=== PATIENT | male | born 1975 | race African-American/Black ===

== ENCOUNTER 2018-12-29 12:42 | Emergency (ER) | payer BC, SELFPAY ==
[2018-12-29] MEDS ORDERED: Ibuprofen 800 MG TAB ONE (13:39)
[2018-12-29] MEDS ORDERED: Ondansetron ODT 4 MG TAB ONE (13:39)
[2018-12-29 14:56] LABS: #Lymphocytes 0.9 thou/uL (1.20-3.40); #Monocytes 0.7 thou/uL (0.11-0.59); #Neutrophils 6.9 thou/uL (1.40-6.50); %Basophils 0.1 % (0.0-1.0); %Eosinophils 0.6 % (0.0-10.0); %Lymphocytes 10.5 % (21.0-51.0); %Monocytes 7.9 % (0.0-10.0); %Neutrophils 80.9 % (42.0-75.0); Hemoglobin 13.3 g/dL (14.0-18.0); Mean Corpuscular HGB CONC 32.4 g/dL (32.0-36.0); Mean Corpuscular Hemoglobin 28.2 pg (27.0-31.0); Mean Platelet Volume 7.6 fL (7.4-10.4); Platelet Count 238 thou/uL (130-400); RBC Distribution Width 11.6 % (11.5-14.5); Red Blood Cell (RBC) Count 4.71 mill/uL (4.70-6.10); White Blood Cell (WBC) Count 8.5 thou/uL (4.8-10.8)
[2018-12-29 15:16] LABS: ALT (SGPT) 128 U/L (8-55); AST (SGOT) 126 U/L (5-34); Albumin 4.4 g/dL (3.5-5.0); Alkaline Phosphatase 94 U/L (40-150); Anion Gap 11 mmol/L (10-20); BUN (Urea Nitrogen) 9 mg/dL (8.9-20.6); Calc. Creatinine Clearance 0 mL/min (70-130); Calcium 9.6 mg/dL (7.8-10.44); Carbon Dioxide 26 mmol/L (22-29); Chloride 101 mmol/L (98-107); Estimated GFR-MDRD Greater than 90; Globulin 3.7 g/dL (2.4-3.5); Glucose 100 mg/dL (70-105); Lipase 10 U/L (8-78); Potassium 4.2 mmol/L (3.5-5.1); Protein, Total 8.1 g/dL (6.0-8.3); Sodium 134 mmol/L (136-145)
== END 2018-12-29 16:29 | disposition home or self-care (01) ==
LOC: ERS 12:42
DX: B34.9 Viral infection, unspecified (principal); M79.10 Myalgia, unspecified site
CPT/HCPCS: 36415; 80053; 83690; 85025; 87804; 96360; Q0162

== ENCOUNTER 2020-04-05 23:49 | Emergency (ER) | payer BC ==
[2020-04-06] MEDS ORDERED: Bacitracin 1 PK ONE (01:06)
--- NOTE | 2020-04-06 08:28 | RAD ---
LEFT THUMB 3 IEWS: HISTORY: Injury, left thumb pain. FINDINGS/IMPRESSION: No acute fracture or dislocation is identified. POS: [facility]
== END 2020-04-06 01:10 | disposition home or self-care (01) ==
LOC: ERS 23:49
DX: S60.012A Contusion of left thumb without damage to nail, initial encounter (principal); W23.0XXA Caught, crushed, jammed, or pinched between moving objects, initial encounter
CPT/HCPCS: 11740

== ENCOUNTER 2020-04-13 19:23 | Emergency (ER) | payer BC | END 2020-04-13 20:25 | disposition left against medical advice (07) | LOC: ERS 19:23 | DX: Z53.21 Procedure and treatment not carried out due to patient leaving prior to being seen by health care provider (principal) ==

== ENCOUNTER 2020-04-16 16:26 | Emergency (ER) | payer BC ==
--- NOTE | 2020-04-16 16:43 | RAD ---
LEFT HAND: 04/16/20 Three views. HISTORY: Trauma. Injury to thumb. Carpals appear intact. Metacarpals and phalanges appear intact. No fracture, dislocation. IMPRESSION: No acute findings. POS: [facility]
== END 2020-04-16 18:38 | disposition home or self-care (01) ==
LOC: ERS 16:26
DX: S60.112A Contusion of left thumb with damage to nail, initial encounter (principal); W22.8XXA Striking against or struck by other objects, initial encounter

== ENCOUNTER 2020-06-21 14:09 | Emergency (ER) | payer BC, OTHER ==
[2020-06-22 12:20] LABS: SARS-CoV-2 MS2 Positive; SARS-CoV-2 N Gene Positive; SARS-CoV-2 S Gene Positive; SARS-CoV-2 by NAA DETECTED (NotDetected); SARS-CoV-2 orf1ab Positive
== END 2020-06-21 14:20 | disposition home or self-care (01) ==
LOC: ERS 14:09
DX: U07.1 COVID-19 (principal)
CPT/HCPCS: 87635; 99283; U0003